=== PATIENT | female | born 1990 | race Caucasian/White ===

== ENCOUNTER 2022-10-06 23:01 | Emergency (ER) | payer OTHER ==
[~2022-10-06] VITALS: Ht 165.1 cm; Wt 63.6 kg
[~2022-10-06 23:01] MED LIST: NO MEDS
[2022-10-06 23:39] LABS: HEMATOCRIT 33.4 % (37.0-47.0); HEMOGLOBIN 11.3 g/dl (12.0-16.0); IMMATURE GRANULOCYTES 0.1 % (0.0-5.0); MEAN CELL VOLUME 80.5 fL CALC (80.0-100.0); MEAN CORPUSCULAR HGB 27.2 pG CALC (26.0-32.0); MEAN CORPUSCULAR HGB CONC 33.8 g/dL CAL (32.0-36.0); NEUT# 7.66 thou/uL (2.00-7.15); RED BLOOD COUNT 4.15 mill/uL (4.20-5.60); RED CELL DISTRI WIDTH 13.8 % (11.5-15.5)
[2022-10-07 00:02] LABS: ALBUMIN 3.5 g/dL (3.2-5.0); ALKALINE PHOSPHATASE 51 u/l (38-126); ANION GAP 11 (6-22 (CALC)); BILIRUBIN, TOTAL 0.5 mg/dL (0.0-1.4); BUN 8 mg/dL (7-17); BUN/CREATININE RATIO 20 (12-20 (CALC)); CARBON DIOXIDE 20 mmol/l (22-30); CHLORIDE 108 mmol/l (95-108); CREATININE 0.4 mg/dL (0.5-1.0); GFR FOR AFR.AMER. > 60 ML/MIN (>=60 (CALC)); GFR OTHER RACES > 60 ML/MIN (>=60 (CALC)); POTASSIUM 3.4 mmol/l (3.5-5.1); SGOT/AST 19 u/l (14-36); SODIUM 136 mmol/l (137-146); TOTAL PROTEIN 6.4 g/dL (6.3-8.2)
[2022-10-07 01:11] VITALS: BP 118/82
== END 2022-10-07 01:21 | disposition home or self-care (01) ==
LOC: ED 23:01
PROVIDERS: Emergency Medicine
DX: O20.0 Threatened abortion (principal); Z3A.14 14 weeks gestation of pregnancy